=== PATIENT | male | born 1950 | race Two or more races ===

== ENCOUNTER 2018-04-27 18:02 | Inpatient (IN) | payer MEDICARE, MEDICAID ==
[~2018-04-27] VITALS: Ht 182.9 cm; Wt 117.0 kg
--- NOTE | 2018-04-27 19:35 | NUR ---
PT BIB FAMILY, AMBULATORY W/ STEADY GAIT, C/O DIZZINESS W/ NO BLURRED VISIONS, NO [place] X TODAY. AOX4, AFEBRILE W/ RESP EVEN & UNLABORED, DENIES ANY CP, NO SOB W/ NAD NOTED. PT IN GOWN, ON CONTINUOUS MONITORING. DR. MIRANDA AT BEDSIDE FOR FURTHER EVAL. FAMILY AT BEDSIDE.
[2018-04-27] MEDS ORDERED: IV NS 0.9% 500 ML BAG IV ONE (20:00)
--- NOTE | 2018-04-27 20:15 | NUR ---
BOBY STARTED, LABS DRAWN & SENT.
[2018-04-27 20:22] LABS: BASOPHILS # (AUTO) 0.1 /CMM (0.0-0.2); EOSINOPHILS % (AUTO) 2.2 % (0.0-6.0); HEMATOCRIT 46 % (39-51); LYMPHOCYTES # (AUTO) 2.2 /CMM (0.8-4.8); LYMPHOCYTES % (AUTO) 29.4 % (20.0-44.0); MEAN CORPUSCULAR HGB CONC 35 g/dl (31.0-36.0); MEAN CORPUSCULAR VOLUME 96 fL (80-96); MONOCYTES # (AUTO) 0.8 /CMM (0.1-1.30); MONOCYTES % (AUTO) 10.4 % (2.0-12.0); NEUTROPHILS # (AUTO) 4.2 /CMM (1.8-8.9); PLATELET COUNT (AUTO) 200 /CMM (150-450); RED BLOOD CELL COUNT(AUTO) 4.78 MIL/uL (4.5-6.0); WHITE BLOOD COUNT (AUTO) 7.3 K/uL (4.3-11.0)
[2018-04-27 20:34] LABS: CARBON DIOXIDE 31 mmol/L (21-32); CHLORIDE 103 mmol/L (98-107); CREATININE 0.8 mg/dL (0.6-1.3); GLUCOSE 95 mg/dL (74-106); POTASSIUM 3.8 mmol/L (3.5-5.1); SODIUM SERUM 141 mmol/L (136-145); UREA NITROGEN, BLOOD 15 mg/dL (7-18)
--- NOTE | 2018-04-27 20:42 | NUR ---
IV FLDS CONTINUE TO BE INFUSING W/ NO S/S INFILTRATION NOTED. ON CONTINUOUS MONITORING.
--- NOTE | 2018-04-27 21:19 | NUR ---
DR. MIRANDA AT BEDSIDE FOR UPDATE ON PT STATUS.
--- NOTE | 2018-04-27 21:19 | NUR ---
CALLED FOR TELE BED
--- NOTE | 2018-04-27 21:26 | NUR ---
GOT TELE BED 320-2
[2018-04-27] MEDS ORDERED: ASPIRIN 325 MG TABLET PO ONE (21:30)
[2018-04-27] MEDS ORDERED: ASPIRIN EC 325 MG TABLET.DR PO ONE (21:31)
--- NOTE | 2018-04-27 21:41 | NUR ---
REPORT GIVEN TO STACEY JACOBSON FOR PT ADMISSION TO TELE RM 320-2. PT SITTING UP IN BED W/ RESP EVEN & UNLABORED, NAD NOTED. ON CONTINUOUS MONITORING.
--- NOTE | 2018-04-27 21:47 | NUR ---
CELIA HYDRANT SETTER AT BEDSIDE FOR EVAL.
--- NOTE | 2018-04-27 21:49 | NUR ---
Repeat EKG at bedside.
[2018-04-27 22:00] VITALS: BP_SYST 129; BP_SYST 165; BP_DIAS 71; BP_DIAS 98
--- NOTE | 2018-04-27 22:00 | NUR ---
RN ADMITTING NOTES Pt ARRIVED TO THE FLOOR VIA [place]. Pt WAS ABLE TO WALK FROM [place] TO ROOM BED WITH STEADY GAIT. NO S/S OF ACUTE DISTRESS OR SOB NOTED. ON TELE MONITOR SR 60. Pt IS A/OX4, VERBAL, ABLE TO MAKE NEEDS KNOWN. [place] SPEAKING, BUT UNDERSTANDS SOME [place]. FAMILY AND FRIEND AT BEDSIDE, HELPING WITH TRANSLATION. IV ACCESS ON RAC #18G. SAFETY MEASURES IN PLACE. BED LOW, LOCKED, HOB ELEVATED, SIDE RAILS UP, CALL LIGHT AND BEDSIDE TABLE WITHIN REACH. WILL CONTINUE TO MONITOR Pt's CONDITION AND SAFETY THROUGHOUT THE NIGHT.
[2018-04-27 22:30] VITALS: BP 165/98
[2018-04-27] MEDS ORDERED: hydrALAZINE HCL IV 20 MG VIAL IV PRN (22:30)
--- NOTE | 2018-04-27 23:00 | NUR ---
RN NOTES Pt WAS C/O PAIN ON THE IV SITE ON RAC. ASKING TO REMOVE IV. STARTED A NEW IV ACCESS ON AND #22G. REMOVED IV ON RAC AND SECURED WITH GAUZE AND TAPE. NO SIGNS OF BLEEDING NOTED.
--- NOTE | 2018-04-27 23:07 | NUR ---
RN NOTES SPOKE WITH COREY YANG ON THE FLOOR. CLARIFIED ACCUCHECK ORDER. PER COREY YANG DC ACCUCHECK ACHS & KEEP Q6.
--- NOTE | 2018-04-27 23:17 | NUR ---
MAY (NEICE): BRENDA (BROTHER): REBECCA (Pt's BEST FRIEND):
[2018-04-27] MEDS ORDERED: HYDROCODONE/APAP 5/325MG 1 EACH TABLET PO PRN (23:30)
[2018-04-28] MEDS ORDERED: INSULIN REGULAR, HUMAN 100 UNIT/ML 3 ML VIAL SQ PRN (00:30)
[2018-04-28] MEDS ORDERED: DEXTROSE 50%-WATER 50 ML DISP.SYRIN IV PRN (00:30)
[2018-04-28] MEDS: BLOOD SUGAR DIAGNOSTIC 1 EACH STRIP IN SCH ×5 (00:34→23:13)
--- NOTE | 2018-04-28 00:34 | NUR ---
RN NOTES ACCUCHECK @ 0000: BG 86. NO INSULIN COVERAGE NEEDED AT THIS TIME.
[2018-04-28 04:00] VITALS: BP 153/78
[2018-04-28] MEDS ORDERED: BLOOD SUGAR DIAGNOSTIC 1 EACH STRIP IN SCH ×2 (06:00→07:30)
--- NOTE | 2018-04-28 06:10 | NUR ---
RN NOTES ACCUCHECK @0600: BG 96. NO INSULIN COVERAGE NEEDED AT THIS TIME.
--- NOTE | 2018-04-28 06:30 | NUR ---
RN NOTES NEW IV ACCES STARTED ON MARCOS #22G, SL.
--- NOTE | 2018-04-28 06:41 | NUR ---
RN CLOSING NOTES NO SIGNIFICANT CHANGES IN Pt's CONDITION. Pt REMAINS STABLE PER BASELINE. NO S/S OF ACUTE DISTRESS OR SOB NOTED DURING THE NIGHT. Pt IS ASLEEP WITH EVEN AND UNLABORED RESPIRATIONS; EQUAL CHEST RISE AND FALL. ALL NEEDS MET AND ATTENDED TO. SAFETY MEASURES IN PLACE. TELE READING SB/SR [id number]. WILL ENDORSE TO DAYSHIFT RN FOR Pt's ROBINA.
[2018-04-28 06:56] LABS: BASOPHILS % (AUTO) 0.6 % (0.0-2.0); HEMATOCRIT 44 % (39-51); HEMOGLOBIN 15.2 g/dL (13.5-17.5); LYMPHOCYTES # (AUTO) 1.9 /CMM (0.8-4.8); LYMPHOCYTES % (AUTO) 28.3 % (20.0-44.0); MEAN CORPUSCULAR HGB CONC 35 g/dl (31.0-36.0); MEAN CORPUSCULAR VOLUME 95 fL (80-96); MONOCYTES # (AUTO) 0.7 /CMM (0.1-1.30); MONOCYTES % (AUTO) 9.8 % (2.0-12.0); NEUTROPHILS % (AUTO) 59.3 % (43.0-81.0); PLATELET COUNT (AUTO) 187 /CMM (150-450); RED BLOOD CELL COUNT(AUTO) 4.62 MIL/uL (4.5-6.0); WHITE BLOOD COUNT (AUTO) 6.7 K/uL (4.3-11.0)
[2018-04-28 07:06] LABS: CALCIUM, SERUM 8.6 mg/dL (8.5-10.1); CREATININE 0.7 mg/dL (0.6-1.3)
--- NOTE | 2018-04-28 07:10 | NUR ---
TEXTED DR. AGUILAR FOR MRI APPROVAL.
[2018-04-28 08:00] VITALS: BP 145/89
--- NOTE | 2018-04-28 08:00 | NUR ---
BREAKER LAYER NOTES PATIENT ALERT, ORIENTED X4 CUBAN SPEAKING. NO SOB OR ACUTE DISTRESS NOTED. PATIENT DENIES ANY PAIN STATES HE DOES FEEL LIGHT HEADED WHEN GETTING UP. PERIPHERAL IV INTACT PATENT . BED IN LOW LOCKED POSITION. WILL CONTINUE TO MONITOR.
--- NOTE | 2018-04-28 08:00 | NUR ---
PIGMENT GRINDER NOTES PATIENT IN BED RESTING ALERT, ORIENTED X4 [place] SPEAKING. DENIES ANY DISCOMFORT. PERIPHERAL IV INTACT PATENT. BED IN LOW LOCKED POSITION. CALL LIGHT WITHIN REACH. WILL CONTINUE TO MONITOR.
[2018-04-28] MEDS: ASPIRIN EC 325 MG TABLET.DR PO SCH (08:34)
[2018-04-28] MEDS: PANTOPRAZOLE 40 MG TABLET.DR PO SCH (08:34)
[2018-04-28] MEDS ORDERED: AMLO10TA6 PO (10:53)
[2018-04-28] MEDS ORDERED: OMEG1CAP55 PO (10:53)
[2018-04-28] MEDS ORDERED: METO-356 PO (10:53)
[2018-04-28] MEDS ORDERED: PRAV20TA4 PO (10:53)
[2018-04-28] MEDS: METOPROLOL SUCCINATE 25 MG TAB.SR.24H PO SCH (11:30)
[2018-04-28] MEDS ORDERED: PRAVASTATIN SODIUM 20 MG TABLET PO SCH (11:30)
[2018-04-28] MEDS: AMLODIPINE BESYLATE 10 MG TABLET PO SCH (11:54)
[2018-04-28 16:00] VITALS: BP 143/93
--- NOTE | 2018-04-28 16:36 | NUR ---
director construction services consult requested by Rhys Caro [facility] for merlene. Pt is a 68 year old male presented self to ed due to complains to dizziness. Pt is alert and aox4, pt is in a pleasant mood surrounded by family members. Pt appears clean and well-groomed. Pt emergency contact is Jameson Reich ([phone]). Pt also provided contact information for family members Heather (Neice): , Morro (Brother): , Camilo (Pt's Best Friend): . Pt has a supportive family who are at beside. Pt states that he had an increase of dizziness and was worried for his health. Pt has yet to receive results from MD. Pt is a frequent nicotine smoker, social work spoke with pt regarding smoking cessation referrals to [employer], 800-LUNG[facility] ,[employer] [phone] and Phone meeting with Friday Morning Joan Fri 8:00 AM [phone].
--- NOTE | 2018-04-28 19:40 | NUR ---
MS RN NOTES PATIENT IN BED RESTING. NO SOB OR ACUTE DISTRESS NOTED. PATIENT WAS SEEN BY NEUROLOGIST. MRI PERFORMED AND REVIEWED BY NEUROLOGIST. ALL DUE MEDICATIONS ADMINISTERED. ALL NEEDS MET ENDORSED CARE TO PM SHIFT.
--- NOTE | 2018-04-28 19:45 | NUR ---
MS/RN OPENING NOTES RECEIVED PATIENT IN BED, AWAKE, ALERT X3, ABLE TO OPEN EYES, AND VERBALIZE NEEDS IN SAMI BUT CAN MAKE GESTURES, AND FAMILY INVOLVEMENT, RESPIRATIONS EVEN AND UNLABORED, SKIN WARM TO TOUCH, DENIES PAIN, RESTING COMFORTABLY IN BED. RECEIVED REPORT FROM AM RN FOR ROBINA, WILL MONITOR.
[2018-04-28 20:00] VITALS: BP 142/87
[2018-04-28] MEDS ORDERED: ATORVASTATIN 10 MG TABLET PO SCH ×2 (22:00)
--- NOTE | 2018-04-28 23:10 | NUR ---
MS/RN NOTES BLOOD SUGAR CHECK NORMAL RESULT AT 102
[2018-04-29] MEDS: BLOOD SUGAR DIAGNOSTIC 1 EACH STRIP IN SCH ×2 (06:06→11:56)
--- NOTE | 2018-04-29 06:29 | NUR ---
320-2 MS/RN NOTES PATIENT ABLE TO SLEEP DURING THE NIGHT, ALERT, ORIENTED, COOPERTAIVE AND PARTICIPATIVE TO CARE. RESPIRATIONS EVEN AND UNLABORED, SUPERVISED FOR SAFETY, FALL PRECAUTIONS, WILL ENDORSE TO AM RN FO ROBINA.
[2018-04-29 06:43] LABS: BASOPHILS % (AUTO) 0.4 % (0.0-2.0); EOSINOPHILS % (AUTO) 2.1 % (0.0-6.0); HEMATOCRIT 44 % (39-51); HEMOGLOBIN 15.1 g/dL (13.5-17.5); LYMPHOCYTES % (AUTO) 31.9 % (20.0-44.0); MEAN CORPUSCULAR HGB CONC 35 g/dl (31.0-36.0); MEAN CORPUSCULAR VOLUME 97 fL (80-96); MONOCYTES # (AUTO) 0.6 /CMM (0.1-1.30); NEUTROPHILS # (AUTO) 3.5 /CMM (1.8-8.9); NEUTROPHILS % (AUTO) 56.6 % (43.0-81.0); PLATELET COUNT (AUTO) 181 /CMM (150-450); RED BLOOD CELL COUNT(AUTO) 4.52 MIL/uL (4.5-6.0); WHITE BLOOD COUNT (AUTO) 6.3 K/uL (4.3-11.0)
[2018-04-29 07:12] LABS: ALBUMIN 3.4 g/dL (3.4-5.0); BILIRUBIN,DIRECT 0.1 mg/dL (0.0-0.2); CALCIUM, SERUM 8.9 mg/dL (8.5-10.1); CREATININE 0.8 mg/dL (0.6-1.3); PHOSPHORUS 3.4 mg/dL (2.5-4.9); POTASSIUM 4.2 mmol/L (3.5-5.1); TOTAL PROTEIN, SERUM 6.4 g/dL (6.4-8.2)
--- NOTE | 2018-04-29 07:15 | NUR ---
RN OPENING NOTES RECEIVED PT. IN BED A&OX4. BREATHING UNLABORED ON ROOM AIR. NO S/S OF ACUTE DISTRESS. BED IS IN LOWEST, AND LOCKED POSITION. INSTRUCTED PT. TO USE CALL LIGHT FOR ASSISTANCE. ALL NEEDS MET. WILL CONTINUE TO ASSESS AND MONITOR.
[2018-04-29] MEDS: PANTOPRAZOLE 40 MG TABLET.DR PO SCH (07:36)
[2018-04-29 08:00] VITALS: BP 159/99
[2018-04-29] MEDS ORDERED: MECL12.582 PO (08:18)
[2018-04-29] MEDS ORDERED: ASPI-1152 PO (08:18)
[2018-04-29 08:54] VITALS: BP 140/80
[2018-04-29] MEDS: METOPROLOL SUCCINATE 25 MG TAB.SR.24H PO SCH (08:54)
[2018-04-29] MEDS: AMLODIPINE BESYLATE 10 MG TABLET PO SCH (08:54)
[2018-04-29] MEDS: ASPIRIN EC 325 MG TABLET.DR PO SCH (08:54)
--- NOTE | 2018-04-29 10:14 | NUR ---
Pt. walked with Physical Therapist without assistance. Per PT patient does not need a FWW before discharge. Will f/u with MD.
--- NOTE | 2018-04-29 16:08 | NUR ---
SOLID PROPELLANT PROCESSOR PT. WAS DISCHARGED IN STABLE CONDITION. DISCHARGE INSTRUCTIONS WERE EXPLAINED AND PT. VERBALIZED UNDERSTANDING. DISCHARGE PAPERS WERE SIGNED. BELONGINGS LIST WAS CHECKED AND SIGNED. ID, AND IV WAS REMOVED. ALL QUESTIONS WERE ANSWERED. PT. LEFT IN PRIVATE CAR WITH HIS BROTHER.
== END 2018-04-29 16:00 | disposition home or self-care (01) | DRG 149 ==
LOC: ER 18:17 → TELE 21:44 → MED 04-28 09:47
PROVIDERS: ADMIT Nurse Practitioner Acute Care; ATTEND Student in an Organized Health Care Education/Training Program
DX: H81.10 Benign paroxysmal vertigo, unspecified ear (principal); E66.9 Obesity, unspecified; Z68.35 Body mass index [BMI] 35.0-35.9, adult; F17.210 Nicotine dependence, cigarettes, uncomplicated; K76.0 Fatty (change of) liver, not elsewhere classified; F10.10 Alcohol abuse, uncomplicated; I10 Essential (primary) hypertension
CPT/HCPCS: 36415; 70450-TC; 70551-TC; 71045-TC; 76705-TC; 80048-TC; 80061-TC; 80076-TC; 82962-TC; 83735-TC; 84100-TC; 84443-TC; 84484-TC; 85025-TC; 85652-TC; 85730-TC; 87081-TC; 92611-TC; 93307-TC; A4606; G0378; J1815; J7040; Q2036; Z7610